=== PATIENT | female | born 1990 ===

== ENCOUNTER 2017-01-08 12:42 | Emergency (ER) | payer OTHER ==
[2017-01-08 12:57] VITALS: TEMP 98.7; O2SAT 99
--- NOTE | 2017-01-08 13:55 | ED PDOC ---
Arrival/HPI <George Colbert - Last Filed: 01/08/17 15:58> - General Historian: Patient - History of Present Illness Time/Duration: Prior to Arrival Symptom Onset: Sudden Symptom Course: Unchanged Context: Home <Zoe Chávez - Last Filed: 01/08/17 18:18> - General Chief Complaint: Female Genitourinary Time Seen by Provider: 01/08/17 12:57 - History of Present Illness Narrative History of Present Illness (Text): 01/08/17 14:05 26 yo female with PMH of asthma presented to ED with vaginal bleeding. Patient states that this morning she has light red bleeding. She denies any abd pain or contractions. Patient was told she was 2 weeks ago, she does not know her estimated due date. Her LMP was sometime in October. She denies any fever, chill, SOB, urinary symptoms. Patient reports nausea and vomiting, last episode was yesterday. Patient has decreased oral intake due to nausea. (Zoe Chávez) Past Medical History - Provider Review Nursing Documentation Reviewed: Yes - Infectious Disease Hx of Infectious Diseases: None - Psychiatric Hx Substance Use: No - Anesthesia Hx Anesthesia: No <Zoe Chávez - Last Filed: 01/08/17 18:18> Family/Social History Family/Social History: No Known Family HX Smoking Status: Never Smoked Hx Alcohol Use: No Hx Substance Use: No Hx Substance Use Treatment: No <Zoe Chávez - Last Filed: 01/08/17 18:18> Allergies/Home Meds <George Colbert - Last Filed: 01/08/17 15:58> <Zoe Chávez - Last Filed: 01/08/17 18:18> Allergies/Adverse Reactions: Allergies Penicillins Allergy (Verified 01/08/17 12:54) URTICARIA Review of Systems - Patients Enrolled in Resourcing Consultant Initiative [X]: A conversation was conducted with the primary medical doctor. - Review of Systems Constitutional: Normal. absent: Fatigue, Fevers Eyes: Normal. absent: Vision Changes ENT: Normal Respiratory: Normal. absent: SOB, Cough, Wheezing Cardiovascular: Normal. absent: Chest Pain, Palpitations Gastrointestinal: Nausea, Vomiting. absent: Abdominal Pain, Constipation, Diarrhea Genitourinary Female: Normal, Vaginal Bleeding. absent: Dysuria, Frequency Musculoskeletal: Normal. absent: Arthralgias, Back Pain, Myalgias Skin: Normal. absent: Rash, Pruritis, Laceration, Ulcer Neurological: Normal. absent: Headache, Dizziness, Speech Changes Endocrine: Normal Hemo/Lymphatic: Normal. absent: Easy Bleeding, Easy Bruising Psychiatric: Normal <Zoe Chávez - Last Filed: 01/08/17 18:18> Physical Exam - Systems Exam Head: Present: Atraumatic, Normocephalic Pupils: Present: PERRL. No: Sluggish, Non-Reactive, Pinpoint Extroacular Muscles: Present: EOMI. No: Gaze Palsy, Entrapment Conjunctiva: Present: Normal. No: Injected, Icteric Mouth: Present: Moist Mucous Membranes, Normal Tounge. No: Dry, Drooling Nose (External): Present: Atraumatic Neck: Present: Normal Range of Motion. No: Meningeal Signs Respiratory/Chest: Present: Clear to Auscultation, Good Air Exchange. No: Respiratory Distress, Accessory Muscle Use, Wheezes, Rhonchi, Tachypneic Cardiovascular: Present: Regular Rate and Rhythm, Normal S1, S2. No: Murmurs, Irregular Rhythm, Tachycardic Abdomen: Present: Normal Bowel Sounds. No: Tenderness, Distention, Peritoneal Signs, Rebound, Guarding Upper Extremity: Present: Normal Inspection, NORMAL PULSES. No: Cyanosis, Edema , Tenderness, Swelling Lower Extremity: Present: Normal Inspection, NORMAL PULSES. No: Edema, CALF TENDERNESS Neurological: Present: GCS=15, CN II-XII Intact, Speech Normal Skin: Present: Warm, Dry, Normal Color. No: Rashes Psychiatric: Present: Alert, Oriented x 3 <SairaZoe - Last Filed: 01/08/17 18:18> Vital Signs Temp Pulse Resp BP Pulse Ox 01/08/17 16:19 82 18 99 01/08/17 15:25 75 18 103/69 99 01/08/17 14:10 79 18 101/68 99 01/08/17 12:56 98.7 F 83 19 93/63 L 99 Medical Decision Making - RAD Interpretation Distribution Superintendent: Radiologist <George Colbert - Last Filed: 01/08/17 15:58> <Zoe Chávez - Last Filed: 01/08/17 18:18> ED Course and Treatment: Patient Seen With Resident: In agreement with resident note which contains more details about the patient. Patient was seen and evaluated with resident. Came up with plan and treatment together. 26yo female with bleeding in . No abd pain, no cramping or contractions. US shows closed cervix and IUP. UA with bacteuria. pt instructed to take multivitamins, macrobid, and to f/u with HOME THERAPY TEACHER Pt states she understands to return to the ER right away for new or worsening symptoms or for inability to f/u with PMD or specialist as instructed. Patient states that she fully agrees with and understands discharge instructions. States that she agrees with the plan and disposition. Verbalized and repeated discharge instructions and plan. I have given the patient opportunity to ask any additional questions. (George Colbert) 01/08/17 14:15 Impression: 26 yo female with PMH of asthma presented with vaginal bleeding. Differential diagnoses include but not limited to: - Ectopic , spontaneous Plan: - CBC, CMP - UA - vaginal ultrasound - Beta HCG 01/08/17 16:07 - vaginal ultrasound showed single live intrauterine gestation with mean gestational age of 6 weeks and 2 days. Cervix is closed however slightly shorter in length and measures 2.4 cm. - UA was positive for bacteria - Discusses with patient the importance of following up with obgyn and PMD, referral for OBGYN was given. Patient was given prescription for macrobid for UTI and vitamins. Patient is to return to ED if new or worsening symptoms. Patient agrees with discharge instructions. (Zoe Chávez) - Lab Interpretations Lab Results: 01/08/17 14:00 01/08/17 14:00 Lab Results 01/08/17 15:40: Blood Type Confirm O POSITIVE 01/08/17 14:00: Urine Color Light yellow, Urine Appearance Sl cloudy, Urine pH 8.0, Ur Specific [place] 1.015, Urine Protein 30 H, Urine Glucose (UA) Negative , Urine Ketones Negative, Urine Blood Moderate H, Urine Nitrate Negative, Urine Bilirubin Negative, Urine Urobilinogen 1.0 H, Ur Leukocyte Esterase Negative, Urine RBC 0 - 2, Urine WBC 1 - 3, Ur Epithelial Cells 6 - 8, Amorphous Sediment Many, Urine Bacteria Few 01/08/17 14:00: WBC 10.6, RBC 4.55, Hgb 14.1, Hct 39.5, MCV 86.8, MCH 31.0, MCHC 35.7, RDW 12.1, Plt Count 327, MPV 8.9, Gran % 71.4 H, Lymph % (Auto) 22.3 , Sac % (Auto) 5.2, Eos % (Auto) 0.9 L, Baso % (Auto) 0.2, Gran # 7.53 H, Lymph # 2.4, Sac # 0.6, Eos # 0.1, Baso # 0.02 01/08/17 14:00: Beta HCG, Quant [id number] H 01/08/17 14:00: Sodium 136, Potassium 3.5 L, Chloride 100, Carbon Dioxide 24, Anion Gap 16, BUN 7, Creatinine 0.6, Est GFR ( Amer) > 60, Est GFR (Non- Af Amer) > 60, Random Glucose 91, Calcium 9.2, Total Bilirubin 0.5, AST 28, ALT 23, Alkaline Phosphatase 50, Total Protein 7.6, Albumin 4.5, Globulin 3.1, Albumin/Globulin Ratio 1.5 01/08/17 13:30: Blood Type O POSITIVE, Antibody Screen Negative, BBK History Checked No verified bt - RAD Interpretation Narrative RAD Interpretations (Text): 01/08/17 15:58 Program Evaluation Consultant : Nataly Mancia MD Approver2 : Report Date : 01/08/2017 15:34:39 My Comment : PROCEDURE: OB Pelvic Ultrasound HISTORY: bleeding, please comment on the cervix COMPARISON: None available. FINDINGS: UTERUS: Gestational sac: Single intrauterine gestation. Heart rate: 120 bpm. age (Ultrasound estimated): 6 weeks and 2 days Anna Marie-gestational hemorrhage: None. Date of delivery (Ultrasound estimated) : 09/01/2017 Uterus measures 7.5 x 4.4 x 5.8 cm. Normal in size and appearance. CERVIX: Closed. Measures 2.6 cm. No cervical abnormality seen. RIGHT OVARY: Measures 3.5 x 1.5 x 2.0 cm. No mass lesion. Normal flow. LEFT OVARY: Measures 4.4 x 1.6 x 1.6 cm. No solid mass. Normal flow. There is a 2.0 x 1.1 x 1.4 cm FREE FLUID: None. OTHER FINDINGS: None. IMPRESSION: Single live intrauterine gestation with mean gestational age of 6 weeks and 2 days. Estimated date of delivery by ultrasound is 09/01/2017. Cervix is closed however slightly shorter in length and measures 2.4 cm. (George Colbert) Radiology Orders: 01/08/17 13:21 OB TRANSVAGINAL [US] Stat Disposition/Present on Arrival - Disposition Have Diagnosis and Disposition been Completed?: Yes Disposition Time: 16:01 Patient Plan: Discharge <George Colbert - Last Filed: 01/08/17 15:58> - Present on Arrival Any Indicators Present on Arrival: No History of DVT/PE: No History of Uncontrolled Diabetes: No Urinary Catheter: No History of Decub. Ulcer: No History Surgical Site Infection Following: None - Disposition Have Diagnosis and Disposition been Completed?: Yes <Zoe Chávez - Last Filed: 01/08/17 18:18> - Disposition Diagnosis: Vaginal bleeding in Disposition: HOME/ ROUTINE Condition: GOOD Discharge Instructions (ExitCare): Threatened Miscarriage (ED), First Trimester Vaginal Bleed (ED) Additional Instructions: PLEASE START TAKING VITAMINS PLEASE RETURN TO THE EMERGENCY DEPARTMENT FOR NEW OR WORSENING SYMPTOMS. RETURN RIGHT AWAY IF YOU CANNOT FOLLOW UP WITH YOUR PRIMARY CARE DOCTOR, CLINIC, OR SPECIALIST IN 1-2 DAYS. Prescriptions: Multivitamin [Multivitamins] 1 each PO DAILY #14 capsule Nitrofurantoin Macrocrystals [Macrobid] 100 mg PO BID #14 cap Referrals: Juan Mayberry MD [Primary Care Provider] - Follow up with primary Glen Albarado [Medical Doctor] - Follow up with primary Forms: [employer] ([place])
[2017-01-08 14:14] LABS: ADD MANUAL DIFF? NO
[2017-01-08 14:19] VITALS: RESP 18
[2017-01-08 14:19] LABS: URINE BILIRUBIN NEGATIVE (NEGATIVE); URINE BLOOD MODERATE (NEGATIVE); URINE GLUCOSE (UA) NEGATIVE (NEGATIVE); URINE KETONE NEGATIVE (NEGATIVE); URINE LEUKOCYTE ESTERASE NEGATIVE Leu/uL (NEGATIVE); URINE PROTEIN 30 mg/dL (<30 mg/dL)
[2017-01-08 14:20] LABS: BASO # 0.02 K/mm3 (0.0-2.0); BASO % 0.2 % (0.0-3.0); EOS # 0.1 (0.0-0.7); EOS % 0.9 % (1.5-5.0); GRAN # 7.53 (1.4-6.5); GRAN % 71.4 % (50.0-68.0); HEMATOCRIT 39.5 % (36.0-48.0); LYMPH # 2.4 (1.2-3.4); LYMPH % 22.3 % (22.0-35.0); MEAN CELL VOLUME 86.8 fL (80.0-105.0); MEAN CORPUSCULAR HGB CONC 35.7 g/dl (31.0-37.0); MEAN PLATELET VOLUME 8.9 fl (7.0-11.0); MONO # 0.6 (0.1-0.6); MONO % 5.2 % (1.0-6.0); PLATELET COUNT 327 10^3/uL (120.0-450.0); RED CELL DISTRIBUTION WIDTH 12.1 % (11.5-14.5); WHITE BLOOD COUNT 10.6 10^3/ul (4.5-11.0)
[2017-01-08 14:23] LABS: URINE APPEARANCE SL CLOUDY (CLEAR); URINE COLOR LIGHT YELLOW (YELLOW)
[2017-01-08 14:26] LABS: ALB/GLOB RATIO 1.5 (1.1-1.8); ALKALINE PHOSPHATASE 50 U/L (38-133); ALT/SGPT 23 U/L (7-56); AST/SGOT 28 U/L (15-39); BILIRUBIN,TOTAL 0.5 mg/dL (0.2-1.3); BLOOD UREA NITROGEN 7 mg/dL (7-21); CALCIUM 9.2 mg/dL (8.4-10.5); CARBON DIOXIDE 24 mmol/L (21-33); CHLORIDE 100 mmol/L (98-107); GFR AFRICAN-AMERICAN > 60; GLUCOSE,RANDOM 91 mg/dL (70-110); POTASSIUM 3.5 mmol/L (3.6-5.0); SODIUM 136 mmol/L (132-148); TOTAL PROTEIN 7.6 g/dL (5.8-8.3)
[2017-01-08 14:28] LABS: URINE AMORPHOUS SEDIMENT MANY; URINE BACTERIA FEW (NEG); URINE RBC 0 - 2 /hpf (0-2)
[2017-01-08 15:25] VITALS: BP 103/69
--- NOTE | 2017-01-08 15:36 | US ---
PROCEDURE: OB Pelvic Ultrasound HISTORY: bleeding, please comment on the cervix COMPARISON: None available. FINDINGS: UTERUS: Gestational sac: Single intrauterine gestation. Heart rate: 120 bpm. age (Ultrasound estimated): 6 weeks and 2 days Anna Marie-gestational hemorrhage: None. Date of delivery (Ultrasound estimated) : 09/01/2017 Uterus measures 7.5 x 4.4 x 5.8 cm. Normal in size and appearance. CERVIX: Closed. Measures 2.6 cm. No cervical abnormality seen. RIGHT OVARY: Measures 3.5 x 1.5 x 2.0 cm. No mass lesion. Normal flow. LEFT OVARY: Measures 4.4 x 1.6 x 1.6 cm. No solid mass. Normal flow. There is a 2.0 x 1.1 x 1.4 cm FREE FLUID: None. OTHER FINDINGS: None. IMPRESSION: Single live intrauterine gestation with mean gestational age of 6 weeks and 2 days. Estimated date of delivery by ultrasound is 09/01/2017. Cervix is closed however slightly shorter in length and measures 2.4 cm.
[2017-01-08 16:19] VITALS: PULSE 82
== END 2017-01-08 16:19 | disposition home or self-care (01) ==
LOC: ED 12:42
DX: O46.91 Antepartum hemorrhage, unspecified, first trimester (principal); Z3A.01 Less than 8 weeks gestation of pregnancy

== ENCOUNTER 2017-01-30 15:43 | Emergency (ER) | payer OTHER ==
[2017-01-30 15:56] VITALS: TEMP 98.3; O2SAT 98; BMI 23.8
--- NOTE | 2017-01-30 16:15 | ED PDOC ---
Arrival/HPI - General Chief Complaint: Female Genitourinary Time Seen by Provider: 01/30/17 15:52 Historian: Patient - History of Present Illness Narrative History of Present Illness (Text): 01/30/17 16:11 A 26 year old female, who is 2.5 weeks , presents to the emergency department complaining of vaginal bleeding since this morning. Patient reports non-radiating lower abdominal cramping. She denies any relieving or exacerbating factors. Patient denies any fever, chills, nausea, vomiting, diarrhea, chest pain, shortness of breath or any other complaints. PMD: None Time/Duration: Other (This morning) Symptom Course: Unchanged Quality: Other Context: Home Past Medical History - Provider Review Nursing Documentation Reviewed: Yes - Infectious Disease Hx of Infectious Diseases: None - Psychiatric Hx Substance Use: No - Anesthesia Hx Anesthesia: No Family/Social History - Physician Review Nursing Documentation Reviewed: Yes Family/Social History: No Known Family HX Smoking Status: Never Smoked Hx Alcohol Use: No Hx Substance Use: No Hx Substance Use Treatment: No Allergies/Home Meds Allergies/Adverse Reactions: Allergies Penicillins Allergy (Verified 01/30/17 15:51) URTICARIA Home Medications: Home Meds Medication Instructions Recorded Confirmed Vit No.126/Iron/Folic 1 tab PO DAILY 01/30/17 01/30/17 [Classic Tablet] Review of Systems - Physician Review All systems were reviewed & negative as marked: Yes - Review of Systems Constitutional: absent: Fevers, Night Sweats Respiratory: absent: SOB Cardiovascular: absent: Chest Pain Gastrointestinal: Abdominal Pain (Lower abdominal cramping). absent: Diarrhea, Nausea, Vomiting Genitourinary Female: Vaginal Bleeding Physical Exam - Physical Exam Narrative Physical Exam (Text): Constitutional: No acute distress. Head: Normocephalic. Atraumatic. Eyes: PERRL. ENT: Moist mucous membranes. Neck: Supple. Cardiovascular: Regular rate. Chest: No tenderness. Respiratory: Clear to auscultation bilaterally. GI: Soft. Nontender. Nondistended. Back: No CVA tenderness. Musculoskeletal: No tenderness or swelling of extremities. Skin: No rash. Neurologic: Alert, no focal deficit. Vital Signs Reviewed: Yes Vital Signs Temp Pulse Resp BP Pulse Ox 01/30/17 17:09 69 18 109/75 98 01/30/17 15:49 98.3 F 74 16 107/72 98 Temperature: Afebrile Blood Pressure: Normal Pulse: Regular Respiratory Rate: Normal Appearance: Positive for: Well-Appearing, Non-Toxic, Comfortable Pain Distress: None Mental Status: Positive for: Alert and Oriented X 3 Medical Decision Making ED Course and Treatment: 01/30/17 16:11 Impression: A 26 year old female, 2.5 weeks , with vaginal bleeding. Plan: -- Transvaginal ultrasound -- Labs -- Urine culture and Urinalysis -- Reassess and disposition Progress Notes: 01/30/17 18:40 US shows IUP with FHR. Cervix is closed. Advised follow up OBGYN, return to ER for worsening pain, fever, bleeding, or any other problem. - Lab Interpretations Lab Results: 01/30/17 16:31 01/30/17 16:31 Lab Results 01/30/17 17:10: Blood Type O POSITIVE, Antibody Screen Negative, BBK History Checked Patient has bt 01/30/17 16:31: Sodium 136, Potassium 3.9, Chloride 102, Carbon Dioxide 24, Anion Gap 14, BUN 7, Creatinine 0.7, Est GFR ( Amer) > 60, Est GFR (Non- Af Amer) > 60, Random Glucose 85, Calcium 9.1, Total Bilirubin 0.4, AST 27, ALT 46, Alkaline Phosphatase 47, Total Protein 7.5, Albumin 4.2, Globulin 3.3, Albumin/Globulin Ratio 1.3 01/30/17 16:31: WBC 9.8, RBC 4.47, Hgb 13.7, Hct 38.9, MCV 87.0, MCH 30.6, MCHC 35.2, RDW 12.5, Plt Count 279, MPV 8.7, Gran % 66.2, Lymph % (Auto) 24.4, [place] % (Auto) 7.9 H, Eos % (Auto) 1.3 L, Baso % (Auto) 0.2, Gran # 6.47, Lymph # 2.4 , [place] # 0.8 H, Eos # 0.1, Baso # 0.02 01/30/17 16:11: Urine Color Yellow, Urine Appearance Turbid, Urine pH 7.0, Ur Specific [place] 1.020, Urine Protein Trace H, Urine Glucose (UA) Negative, Urine Ketones Trace H, Urine Blood Large H, Urine Nitrate Negative, Urine Bilirubin Negative, Urine Urobilinogen 0.2, Ur Leukocyte Esterase Negative, Urine RBC 2 - 5, Urine WBC 0 - 2, Ur Epithelial Cells Many, Urine Bacteria Many I have reviewed the lab results: Yes - RAD Interpretation Radiology Orders: 01/30/17 16:08 OB TRANSVAGINAL [US] Stat - Scribe Statement The provider has reviewed the documentation as recorded by the Scribe Carlene Koch Provider Scribe Attestation: All medical record entries made by the Scribe were at my direction and personally dictated by me. I have reviewed the chart and agree that the record accurately reflects my personal performance of the history, physical exam, medical decision making, and the department course for this patient. I have also personally directed, reviewed, and agree with the discharge instructions and disposition. Disposition/Present on Arrival - Present on Arrival Any Indicators Present on Arrival: No History of DVT/PE: No History of Uncontrolled Diabetes: No Urinary Catheter: No History of Decub. Ulcer: No History Surgical Site Infection Following: None - Disposition Have Diagnosis and Disposition been Completed?: Yes Diagnosis: Threatened Disposition: HOME/ ROUTINE Disposition Time: 18:40 Patient Plan: Discharge Condition: STABLE Discharge Instructions (ExitCare): Threatened Miscarriage (ED)
[2017-01-30 16:31] LABS: URINE BILIRUBIN NEGATIVE (NEGATIVE); URINE BLOOD LARGE (NEGATIVE); URINE GLUCOSE (UA) NEGATIVE (NEGATIVE); URINE LEUKOCYTE ESTERASE NEGATIVE Leu/uL (NEGATIVE); URINE NITRATE NEGATIVE (NEGATIVE); URINE PROTEIN TRACE mg/dL (<30 mg/dL); URINE UROBILINOGEN 0.2 E.U./dL (<1 E.U./dL)
[2017-01-30 16:32] LABS: URINE APPEARANCE TURBID (CLEAR); URINE COLOR YELLOW (YELLOW)
[2017-01-30 16:37] LABS: URINE BACTERIA MANY (NEG); URINE EPITHELIAL CELLS MANY /hpf (0-5); URINE WBC 0 - 2 /hpf (0-6)
[2017-01-30 16:37] LABS: BASO # 0.02 K/mm3 (0.0-2.0); BASO % 0.2 % (0.0-3.0); EOS # 0.1 (0.0-0.7); EOS % 1.3 % (1.5-5.0); GRAN # 6.47 (1.4-6.5); GRAN % 66.2 % (50.0-68.0); HEMOGLOBIN 13.7 gm/dL (12.0-16.0); LYMPH # 2.4 (1.2-3.4); LYMPH % 24.4 % (22.0-35.0); MEAN CORPUSCULAR HEMOGLOBIN 30.6 pg (25.0-35.0); MEAN CORPUSCULAR HGB CONC 35.2 g/dl (31.0-37.0); MEAN PLATELET VOLUME 8.7 fl (7.0-11.0); MONO # 0.8 (0.1-0.6); MONO % 7.9 % (1.0-6.0); PLATELET COUNT 279 10^3/uL (120.0-450.0); RBC 4.47 10^6/uL (3.5-6.1); RED CELL DISTRIBUTION WIDTH 12.5 % (11.5-14.5); WHITE BLOOD COUNT 9.8 10^3/ul (4.5-11.0)
[2017-01-30 16:50] LABS: ALB/GLOB RATIO 1.3 (1.1-1.8); ALBUMIN 4.2 g/dL (3.0-4.8); ALT/SGPT 46 U/L (7-56); AST/SGOT 27 U/L (15-39); BLOOD UREA NITROGEN 7 mg/dL (7-21); CALCIUM 9.1 mg/dL (8.4-10.5); GFR AFRICAN-AMERICAN > 60; GFR NON-AFRICAN AMERICAN > 60
[2017-01-30 17:09] VITALS: BP 109/75; PULSE 69; RESP 18
--- NOTE | 2017-01-30 18:36 | US ---
Indication: vag bleed in , assess cervix Comparison: Ob transvaginal ultrasound performed 01/08/17 Technique: Transvaginal pelvic ultrasound. Findings: The uterus measures approximately 8.4 x 6.6 x 6.6 cm. Cervix length 3.5 cm. Fluid is noted within the cervical canal. There is a single intrauterine fetus present. 5 mm yolk sac. The gestational sac measures 4.4 cm and is compatible with a gestational age of 9 weeks 6 days. The crown-rump length measures 2.5 cm and is compatible with a gestational age of 9 weeks 2 days. There is heart motion which measured 160 BPM. The right ovary measures 2.9 x 1.5 x 1.5 cm. The left ovary measures 2.7 x 1.6 x 1.2 cm. Flow was demonstrated to both ovaries. Impression: Limited study. Single intrauterine with estimated gestational age 9 weeks 6 days by gestational sac calculation and 9 weeks 2 days by crown-rump length calculation. heart rate 160 bpm. Small fluid within the cervix. Advise an anomaly screen at 16-18 weeks gestational age
== END 2017-01-30 19:00 | disposition home or self-care (01) ==
LOC: ED 15:43
DX: O20.0 Threatened abortion (principal); Z3A.01 Less than 8 weeks gestation of pregnancy

== ENCOUNTER 2017-05-03 16:22 | Emergency (ER) | payer OTHER ==
[2017-05-03 16:23] VITALS: BMI 23.8
[2017-05-03 16:59] LABS: URINE BILIRUBIN NEGATIVE (NEGATIVE); URINE BLOOD LARGE (NEGATIVE); URINE GLUCOSE (UA) NEGATIVE (NEGATIVE); URINE KETONE NEGATIVE (NEGATIVE); URINE LEUKOCYTE ESTERASE LARGE Leu/uL (NEGATIVE); URINE PROTEIN TRACE mg/dL (<30 mg/dL); URINE UROBILINOGEN 0.2 E.U./dL (<1 E.U./dL)
[2017-05-03 17:02] LABS: URINE APPEARANCE SL CLOUDY (CLEAR); URINE COLOR LIGHT YELLOW (YELLOW)
--- NOTE | 2017-05-03 17:09 | ED PDOC ---
Arrival/HPI <George Colbert - Last Filed: 05/03/17 19:01> - General Historian: Patient, Spouse <Deis Guzman - Last Filed: 05/03/17 19:07> - General Chief Complaint: Female Genitourinary Time Seen by Provider: 05/03/17 16:35 - History of Present Illness Narrative History of Present Illness (Text): 05/03/17 26 yo female , LNMP 11/23/16 come in for evaluation of Right sided lower back and Right sided lower abdominal pain gradually developed since today AM associated vaginal bleeding. Pt describes vaginal bleeding as scant bleeding, denies clots or significant " menstrual bleeding". Pt describes abdominal pain as intermittent, self-limited, random , pt denies contraction-like pain. Otherwise, pt denies fever, chills, headache, dizziness, chest pain, shortness of breath, dyspnea, diaphoresis, V/D, denies uti sx. At the time of evaluation, pt appears comfortable, not in any apparent distress. (Desi Guzman) Past Medical History - Provider Review Nursing Documentation Reviewed: Yes - Travel History Have you recently traveled outside [place] w/in the past 3 mons?: No If Yes, travel location?: [facility] - Infectious Disease Hx of Infectious Diseases: None - Psychiatric Hx Psychophysiologic Disorder: No Hx Substance Use: No - Anesthesia Hx Anesthesia: No <Desi Guzman - Last Filed: 05/03/17 19:07> Family/Social History - Physician Review Nursing Documentation Reviewed: Yes Family/Social History: No Known Family HX Smoking Status: Never Smoked Hx Alcohol Use: No Hx Substance Use: No Hx Substance Use Treatment: No <Desi Guzman - Last Filed: 05/03/17 19:07> Allergies/Home Meds <George Colbert - Last Filed: 05/03/17 19:01> <Desi Guzman - Last Filed: 05/03/17 19:07> Allergies/Adverse Reactions: Allergies Penicillins Allergy (Verified 05/03/17 16:27) URTICARIA Home Medications: Home Meds Medication Instructions Recorded Confirmed Vit No.126/Iron/Folic 1 tab PO DAILY 01/30/17 05/03/17 [Classic Tablet] Review of Systems - Review of Systems Constitutional: Normal Eyes: Normal ENT: Normal Respiratory: Normal Cardiovascular: Normal Gastrointestinal: Normal Genitourinary Female: Hematuria, Vaginal Bleeding Musculoskeletal: Back Pain Skin: Normal Neurological: Normal Endocrine: Normal Hemo/Lymphatic: Normal Psychiatric: Normal <Desi Guzman - Last Filed: 05/03/17 19:07> Physical Exam Temperature: Afebrile Blood Pressure: Normal Pulse: Regular Respiratory Rate: Normal Appearance: Positive for: Well-Appearing, Non-Toxic, Comfortable Pain Distress: Moderate Mental Status: Positive for: Alert and Oriented X 3 - Systems Exam Conjunctiva: Present: Normal Mouth: Present: Moist Mucous Membranes. No: Drooling Neck: Present: Trachea Midline. No: JVD, Bruit Respiratory/Chest: Present: Clear to Auscultation, Good Air Exchange. No: Respiratory Distress, Accessory Muscle Use Cardiovascular: Present: Regular Rate and Rhythm, Normal S1, S2. No: Murmurs Abdomen: Present: Tenderness (Right groin tenderness, mild suprapubic tenderness ), Normal Bowel Sounds, Other (Gravid. FH at level of umbilicus.). No: Peritoneal Signs Genitourinary/Pelvic Exam: Present: Vaginal Bleeding (scant bloody doscharges noted mixed with clear vaginal discharges). No: Cervical os Closed Back: Present: Other (Right flank tenderness). No: CVA Tenderness Upper Extremity: No: Cyanosis, Edema Lower Extremity: Present: NORMAL PULSES, Normal ROM. No: Edema, CALF TENDERNESS , Swelling, Deformity Neurological: Present: GCS=15, Speech Normal Skin: Present: Warm, Dry, Normal Color. No: Rashes Psychiatric: Present: Alert, Oriented x 3 <Desi Guzman - Last Filed: 05/03/17 19:07> Vital Signs Temp Pulse Resp BP Pulse Ox 05/03/17 18:09 87 18 110/64 100 05/03/17 16:27 98.5 F 87 16 96/62 L 99 Medical Decision Making <George Colbert - Last Filed: 05/03/17 19:01> <Desi Guzman - Last Filed: 05/03/17 19:07> ED Course and Treatment: 05/03/17 18:[address] Nicole in detail from [facility]. I discussed the case with him is detail and explained to him pt's US read, and her LNMP 11/23/16. He states he will not accept the transfer. dw Dr. De Oliveira from [facility], accepted transfer. 05/03/17 19:01 Dr. Xiong from [facility] spoke with Dr. Nicole as well, who again refused the transfer Dr. De Oliveira accepted transfer to [facility] ([place],George) 05/03/17 At 18:16, received reports from [facility] [employer] reg abnormal findings. OG on-call at [facility] called. At 18:48, case discussed with on-call [facility] who recommend high lead yarder service facility. Case discussed with [facility] on-call Ob who refused transferred "qualified as P[employer] case" and recommend transfer to [facility] [employer] service. refused transfer to [facility]. Case discussed with Emergency department attending who discussed case with and directly. At present time, pt appears comfortable, denies timely contraction or significant back or abd. pain. At 19:05 after case discussed with again and , transfer was accepted. Pt will be transfer to [facility], At the time of evaluation, pt is afebrile, hemodynamicaly stable. Pt denies contraction at present time or significant vaginal bleeding. non-toxic. Abd: benign. results were review with pt and family, understand. Pt transfer to [facility] service. (Desi Guzman) - Lab Interpretations Lab Results: 05/03/17 17:10 Lab Results 05/03/17 17:10: Urine HCG, Qual Positive 05/03/17 17:10: WBC 15.1 H D, RBC 3.51, Hgb 10.9 L, Hct 31.2 L, MCV 88.9, MCH 31.1, MCHC 34.9, RDW 13.2, Plt Count 272, MPV 8.6, Gran % 80.6 H, Lymph % (Auto ) 13.3 L, [place] % (Auto) 5.0, Eos % (Auto) 1.0 L, Baso % (Auto) 0.1, Gran # 12.15 H, Lymph # 2.0, [place] # 0.8 H, Eos # 0.2, Baso # 0.02 05/03/17 16:45: Urine Color Light yellow, Urine Appearance Sl cloudy, Urine pH 8.0, Ur Specific [place] 1.015, Urine Protein Trace H, Urine Glucose (UA) Negative, Urine Ketones Negative, Urine Blood Large H, Urine Nitrate Negative, Urine Bilirubin Negative, Urine Urobilinogen 0.2, Ur Leukocyte Esterase Large H , Urine RBC 2 - 5, Urine WBC 25 - 30, Ur Epithelial Cells 6 - 8, Urine Bacteria Mod - RAD Interpretation Radiology Orders: 05/03/17 17:05 AGE [US] Stat tient Name / ID : KENDAL WYATT / [id number] Exam Date : 05/03/2017 17:29:34 ( Approved ) Study Comment : Sex / Age : F / 26Y Creator : Rodrigo Diane MD Dictator : Rodrigo Diane MD Extruder Operator Helper : Commercial Real Estate Agent : Rodrigo Diane MD Approver2 : Report Date : 05/03/2017 18:06:08 My Comment : PROCEDURE: Second trimester ultrasound HISTORY: PAIN, VAGINAL BLEEDING COMPARISON: 02/03/2017. TECHNIQUE: Standard protocol for this study/examination. FINDINGS: Footling breech presentation. Posterior Placenta. No evidence of abruption or previa Gestational age derived from LMP Cannot be ascertained based in the absence of a reliable/ known LMP Gestational age derived from the following biometric parameters 22 weeks 4 days with an ELIDA of 09/02/2017 . Biparietal diameter 5.2 cm Head .3 cm Abdominal circumference 17.8 cm Femur length 4.2 cm Estimated weight 551 g Calculated cardiac rate 163 beats per min. Open cervix, footling breech presentation, lower extremities are seen in the cervical canal. IMPRESSION: 1. Twenty-two weeks 4 days live intrauterine gestation. 2. Footling breech presentation, open cervix with the lower extremities of the fetus documented and seen within the cervical canal. (Desi Guzman) - Medication Orders Current Medication Orders: Discontinued Medications Acetaminophen (Tylenol 325mg Tab) 975 mg PO STAT STA Stop: 05/03/17 17:06 Last Admin: 05/03/17 17:18 Dose: 975 mg MAR Pain/Vitals Document 05/03/17 17:18 IN (Rec: 05/03/17 17:19 IN [id number]) Pain Reassessment Is This A Pain ReAssessment? No Sleep Is patient sleeping during reassessment? No Presence of Pain Presence of Pain Yes Pain Scale Used Pain Scale Used Numeric Location Upper or Lower Lower Pain Location Body Site Abdomen Description Cramping Intensity 10 Scale Used Numeric Radiation Location lower back Pain Behavior Crying Rubbing Site Facial Grimacing Sodium Chloride (Sodium Chloride 0.9%) 1,000 mls @ 999 mls/hr IV .Q1H1M STA Stop: 05/03/17 18:43 Last Admin: 05/03/17 18:04 Dose: 999 mls/hr eMAR Start Stop Document 05/03/17 18:04 IN (Rec: 05/03/17 18:04 IN [id number]) Intravenous Solution Start Date 05/03/17 Start Time 18:04 Nitrofurantoin Macrocrystals (Macrobid) 100 mg PO STAT STA Stop: 05/03/17 17:47 Last Admin: 05/03/17 18:04 Dose: 100 mg - PA / VAULT PERSON / Resident Statement MD/DO has reviewed & agrees with the documentation as recorded. <George Colbert - Last Filed: 05/03/17 19:01> Disposition/Present on Arrival <George Colbert - Last Filed: 05/03/17 19:01> - Present on Arrival Any Indicators Present on Arrival: No History of DVT/PE: No History of Uncontrolled Diabetes: No Urinary Catheter: No History of Decub. Ulcer: No History Surgical Site Infection Following: None - Disposition Have Diagnosis and Disposition been Completed?: Yes Disposition Time: 19:07 Patient Plan: Transfer To ([facility]) <Desi Guzman - Last Filed: 05/03/17 19:07> - Disposition Diagnosis: Threatened Disposition: Transfer [facility] Condition: FAIR Forms: [facility] (Icelandic)
[2017-05-03 17:26] LABS: URINE WBC 25 - 30 /hpf (0-6)
[2017-05-03 17:27] LABS: URINE BACTERIA MOD (NEG)
[2017-05-03 17:30] LABS: BASO # 0.02 K/mm3 (0.0-2.0); BASO % 0.1 % (0.0-3.0); EOS # 0.2 (0.0-0.7); GRAN # 12.15 (1.4-6.5); GRAN % 80.6 % (50.0-68.0); HEMATOCRIT 31.2 % (36.0-48.0); LYMPH % 13.3 % (22.0-35.0); MEAN CELL VOLUME 88.9 fl (80.0-105.0); MEAN CORPUSCULAR HEMOGLOBIN 31.1 pg (25.0-35.0); MEAN CORPUSCULAR HGB CONC 34.9 g/dl (31.0-37.0); MEAN PLATELET VOLUME 8.6 fl (7.0-11.0); MONO # 0.8 (0.1-0.6); RED CELL DISTRIBUTION WIDTH 13.2 % (11.5-14.5); WHITE BLOOD COUNT 15.1 10^3/ul (4.5-11.0)
[2017-05-03] MEDS ORDERED: Sodium Chloride 0.9% 1,000 ML IV STA (17:43)
[2017-05-03 17:51] LABS: BLOOD UREA NITROGEN 4 mg/dL (7-21); CALCIUM 8.6 mg/dL (8.4-10.5); CARBON DIOXIDE 22 mmol/L (21-33); CHLORIDE 104 mmol/L (98-107); GFR AFRICAN-AMERICAN > 60; GLUCOSE,RANDOM 119 mg/dL (70-110); POTASSIUM 3.4 mmol/L (3.6-5.0); SODIUM 135 mmol/L (132-148)
[2017-05-03 19:55] VITALS: BP 112/68; PULSE 82; RESP 16; TEMP 98.2; O2SAT 99
--- NOTE | 2017-05-03 20:03 | US ---
PROCEDURE: Second trimester ultrasound HISTORY: PAIN, VAGINAL BLEEDING COMPARISON: 02/03/2017. TECHNIQUE: Standard protocol for this study/examination. FINDINGS: Footling breech presentation. Posterior Placenta. No evidence of abruption or previa Gestational age derived from LMP Cannot be ascertained based in the absence of a reliable/ known LMP Gestational age derived from the following biometric parameters 22 weeks 4 days with an ELIDA of 09/02/2017 . Biparietal diameter 5.2 cm Head iinovywcxllyw88.3 cm Abdominal circumference 17.8 cm Femur length 4.2 cm Estimated weight 551 g Calculated cardiac rate 163 beats per min. Open cervix, footling breech presentation, lower extremities are seen in the cervical canal. IMPRESSION: 1. Twenty-two weeks 4 days live intrauterine gestation. 2. Footling breech presentation, open cervix with the lower extremities of the fetus documented and seen within the cervical canal.
== END 2017-05-03 20:03 | disposition short-term general hospital (02) ==
LOC: ED 16:22
DX: O20.0 Threatened abortion (principal); Z3A.22 22 weeks gestation of pregnancy
CPT/HCPCS: 76815; 80048; 81001; 84702; 84703; 85025; 87086; 99285; J7040